=== PATIENT | female | born 1995 | race American Indian/Alaskan Native ===

== ENCOUNTER 2016-11-23 16:55 | Emergency (ER) | payer OTHER ==
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
[2016-11-23 19:38] VITALS: BP 115/67
[2016-11-23] MEDS ORDERED: FLEXERIL PO ONE (20:15)
[2016-11-23] MEDS ORDERED: TORADOL IM ONE (20:15)
--- NOTE | 2016-11-23 20:20 | XRay Report ---
FINAL REPORT PROCEDURE: XR SPINE LUMBOSACRAL 2-3V TECHNIQUE: Lumbar spine radiographs, including AP, lateral, bilateral oblique, flexion, and extension views. CPT 46072 HISTORY: back pain COMPARISON: No prior studies are available for comparison. FINDINGS: Alignment in neutral position: Normal . Vertebral body movement with flexion and extension: Physiologic . Vertebral body heights/Disk spaces: Normal . Fracture(s): None . Facets: Normal . Bone mineralization: Normal . IMPRESSION: Golden Examination.
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
--- NOTE | 2016-11-23 21:05 | XRay Report ---
FINAL REPORT PROCEDURE: XR SPINE CERVICAL 2-3V TECHNIQUE: Cervical spine radiographs, AP, lateral, and open-mouth odontoid views. CPT 28979 HISTORY: neck pain COMPARISON: No prior studies are available for comparison. FINDINGS: Prevertebral soft tissues: Normal . Alignment: Normal . Vertebral body heights/Disk spaces: Normal . Fracture(s): None . Facets: Normal . Bone mineralization: Normal . IMPRESSION: Normal Examination
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
== END 2016-11-23 21:50 | disposition home or self-care (01) ==
LOC: ED 16:55
DX: M54.2 Cervicalgia (principal); R07.89 Other chest pain; M54.5 Low back pain; V49.49XA Driver injured in collision with other motor vehicles in traffic accident, initial encounter; Y93.89 Activity, other specified; Y99.8 Other external cause status; Y92.488 Other paved roadways as the place of occurrence of the external cause
CPT/HCPCS: 36415; 71020; 72040; 72100; 84703; 96372; 99284; J1885